=== PATIENT | male | born 1980 | race Caucasian/White ===

== ENCOUNTER 2018-01-07 08:19 | Emergency (ER) | payer MEDICAID, SELFPAY ==
[2018-01-07 08:20] VITALS: BP 133/94; PULSE 81; RESP 16; TEMP 36.3; O2SAT 99; BMI 20.7
--- NOTE | 2018-01-07 08:36 | ED.VISSUMM ---
- ER Visit Summary Date of Service: 01/07/18 Chief Complaint: Wound evaluation History of Present Illness: The patient is a 37 M who lives in [facility] presents because of pain and something sticking out of his wound right hip. He states he had surgery 2 months ago secondary to infected brown recluse spider. [address] in [place], [place]. He states he is visiting a friend. He denies fever, chills night sweats. States he has drainage. Please read written note. Physical Examination: Vital signs noted and blood pressure slightly elevated 133/94. Patient has a healing incision. There is a stitch that has popped through. There is no fluctuance. There is minimal erythema. There is no inguinal lymphadenopathy. There is no lymphangitis. Test Results: None Emergency Department Course and Treatment: The stitch was cut so that it was not protruding from the skin. Patient was informed is not of infection. Of note when patient pushed on his wound he had no pain when I touched it with my fingers he had excruciating pain. He states there is drainage. I informed there is no drainage. He was told he would be treated with an sense is no contraindication. Furthermore, he reports allergy to hydrocodone. Treatment Plan: Appropriate home-going instructions Disposition: Discharged to home Impression: 1. Postop wound evaluation without evidence infection. 2. Excision of subcu stitch This note was generated with [employer] dictation software. It may contain incorrect words, spelling, and punctuation that were not noted in review of the chart prior to signing ED Disposition - Plan for ED Patient: Disposition: Home or Assisted Living Chief Complaint: Wound Check Instructions: ED Wound Check Post Op No Infec Prescriptions: Naproxen [Naprosyn] 500 mg PO BID #14 tab Referrals: NOT,DEFINED [Primary Care Provider] -
== END 2018-01-07 09:06 | disposition home or self-care (01) ==
PROVIDERS: Emergency Provider Emergency Medicine
DX: Z09 Encounter for follow-up examination after completed treatment for conditions other than malignant neoplasm (principal); Z72.0 Tobacco use; R21 Rash and other nonspecific skin eruption
CPT/HCPCS: 99282